=== PATIENT | male | born 1980 | race Caucasian/White ===

== ENCOUNTER → 2016-11-08 | Outpatient (CLI) | payer OTHER ==
--- NOTE | 2016-11-08 11:15 | DIAGNOSTIC IMAGING REPORT ---
ULTRASOUND TESTES AND SCROTUM CLINICAL HISTORY: Groin pain. COMPARISON STUDY: No priors. TECHNIQUE: Real-time, grayscale, and color Doppler sonography of the testes and scrotum is performed. Images are reviewed in the transverse and longitudinal planes. FINDINGS: The testes are normal in size and homogeneous in echotexture. The right testis measures 5.2 x 2.4 x 3.3 cm and the left testis measures 5.0 x 2.5 x 3.0 cm. No intratesticular mass is seen. Testicular blood flow is normal and symmetric. Normal Doppler waveforms are identified in both testes. The epididymal heads are normal in appearance. The right epididymal head measures 1.4 cm in length and the left epididymal head measures 1.2 cm in length. No varicocele or hydrocele is seen. IMPRESSION: No acute scrotal abnormality is identified. Electronically signed by: Chuck Quiñonez M.D. 11/08/2016 11:13 AM Dictated Date/Time: 11/08/2016 11:11 AM
== END | disposition home or self-care (01) ==
LOC: C.ULTR 10:24
PROVIDERS: ATTEND Physician Assistant
DX: N50.819 Testicular pain, unspecified (principal)

== ENCOUNTER 2017-11-05 09:49 | Emergency (ER) | payer OTHER ==
[~2017-11-05] VITALS: Ht 180.3 cm; Wt 92.3 kg
[2017-11-05 10:06] VITALS: TEMP 36.4; Ht 180.3 cm; Wt 92.3 kg
--- NOTE | 2017-11-05 10:47 | DIAGNOSTIC IMAGING REPORT ---
L FOOT MIN 3 VIEWS ROUTINE CLINICAL HISTORY: 37 years-old Male presenting with left foot pain, pain in the fifth metatarsal. TECHNIQUE: Frontal, oblique, and lateral views of the left foot were obtained. COMPARISON: None. FINDINGS: No acute fracture or malalignment. No advanced degenerative change. No radiographic soft tissue abnormality. IMPRESSION: No acute osseous injury. Electronically signed by: Antwan Lepe M.D. 11/05/2017 10:46 AM Dictated Date/Time: 11/05/2017 10:45 AM
[2017-11-05 11:09] VITALS: BP 139/79; PULSE 75; O2SAT 99
--- NOTE | 2017-11-05 15:51 | EMERGENCY ROOM VISIT NOTE ---
ED Visit Note First contact with patient: 10:11 CHIEF COMPLAINT: Left foot injury History of present illness: This 37-year-old white male patient sustained an injury to the lateral left foot, when he accidentally kicked the corner of his wood burner last evening. He complains of swelling and pain with weight bearing. No numbness or weakness. Constant pain, moderate, worse with movement and weight bearing. No ankle pain. No prior history of significant foot injury. Treatment has consisted of cold water soaks. Pain is 6/10. He is concerned that something is broken. It did keep him from sleeping last night. REVIEW OF SYSTEM: HEENT: No dizziness, visual problems, hearing loss, or tinnitus. There is no difficulty swallowing and no oral lesions are present. PULMONARY: No cough, shortness of breath, sputum production or hemoptysis. CARDIOVASCULAR: No chest pain, palpitations, shortness of breath or peripheral edema. GASTROINTESTINAL: No diarrhea, constipation, nausea, vomiting, or abdominal pain. GENITOURINARY: No dysuria, frequency, urgency or nocturia. NEUROLOGIC: No weakness, muscle tenderness, epilepsy or history of neurological problems. MUSCULOSKELETAL: No history of joint tenderness/swelling. No history of arthritis or arthralgias. SKIN: Positive history of psoriasis ENDOCRINE: No history of diabetes, thyroid disorders, or abnormal hair growth. PMH: Supplemental sheet was reviewed and signed. Previous surgeries: None Medical history: Significant for psoriasis Current medications: None Allergies: NKDA SOCIAL HISTORY: Patient lives at home. Employed. No tobacco use, no EtOH use. PHYSICAL EXAM: Vital Signs: Afebrile. Reviewed and found in patient's chart. GENERAL: Well-developed, well-nourished, young white male, in obvious discomfort. Alert, oriented and choerent, not in acute distress. Sitting on the bed. Skin: Warm and dry with good turgor. Psoriatic plaques are present extensively on his upper and lower extremities. No ecchymosis. Mild edema and erythema present over the fifth MTP joint laterally and dorsally. The patient is not diaphoretic. No abrasions. Musculoskeletal: There is tenderness and swelling over the fifth MTP joint but no deformity. The range of motion of the ankle and toes is intact and unremarkable. No pain with palpation over the medial or lateral malleolus. No pain with palpation over the first through third metatarsals or digits. He does have pain with palpation over the distal fifth metatarsal and MTP joint. Achilles tendon is palpated to its entirety and found to be intact and without defect. Normal Wong test. Neurologic: Gross sensation is intact across the ankle and foot by soft touch. Peripheral pulses are 2+. EMERGENCY DEPARTMENT COURSE: Radiographic imaging obtained today of the foot was read by radiology as normal. I did review these films as well. Impression: Left foot contusion TREATMENT: Patient was educated regarding these findings. Conservative care measures were discussed. Ice and elevation for 3 days, then use moist heat. Ibuprofen, 600mg every 6 hours for the pain. Add Tylenol every 6 hours for breakthrough pain. Gentle motion daily. Limit weight bearing until the pain subsides. Follow up with your own doctor if the pain is no better in 5 days or if it gets worse. He was reassured that I do not suspect tendon rupture or fracture. I do not suspect cellulitis at this point. Current/Historical Medications No Active Prescriptions or Reported Meds Allergies Coded Allergies: No Known Allergies (Unverified , 11/05/17) Vital Signs Date Time Temp Pulse Resp B/P (MAP) Pulse Ox O2 Delivery O2 Flow Rate FiO2 11/05/17 11:09 75 16 139/79 99 11/05/17 10:48 65 16 127/80 98 Room Air 11/05/17 10:06 36.4 68 18 147/72 98 Room Air Departure Information Impression Primary Impression: Contusion of left foot Dispostion Home / Self-Care Condition FAIR Prescriptions No Active Prescriptions or Reported Meds Forms HOME CARE DOCUMENTATION FORM, MOTRIN USE, TYLENOL USE, IMPORTANT VISIT INFORMATION Patient Instructions My [employer] Additional Instructions Ice and elevate frequently to reduce pain and swelling Use a firm soled shoe when weightbearing Motrin 600 mg every 6 hours with food until pain resolves Follow-up with your PCP as needed, or return to the ED for any other concerns
== END 2017-11-05 11:07 | disposition home or self-care (01) ==
LOC: C.EDB 09:51 → C.EDC 11:07
DX: S90.32XA Contusion of left foot, initial encounter (principal); W22.8XXA Striking against or struck by other objects, initial encounter; Y92.009 Unspecified place in unspecified non-institutional (private) residence as the place of occurrence of the external cause; L40.9 Psoriasis, unspecified